=== PATIENT | male | born 1960 | race African-American/Black ===

== ENCOUNTER 2016-10-17 10:17 | Emergency (ER) | payer OTHER ==
[~2016-10-17] VITALS: Ht 167.6 cm; Wt 127.6 kg
[~2016-10-17 10:17] MED LIST: ALBUTEROL17 G1 IH; ASPIRIN81 M1 PO; ATENOLOL25 MG PO; HYTRIN5 MG PO; IMDUR120 MG PO; NITROSTAT0.4 MG PO; PLAVIX75 MG PO; QVAR 40 MCG IN7.3 GM IH; SYNTHROID25 MCG PO; ZESTRIL,PRINIVIL5 MG PO; ZOCOR10 MG PO
[2016-10-17 10:43] LABS: HEMATOCRIT 41.2 % (38.0-50.0); MCH 27.3 PG (29.0-34.0); MCHC 32.3 G/DL (30.0-36.0); MCV 84.6 FL (86-99); MEAN PLAT.VOLUME 9.9 uM^3 (9.0-12.4); PLATELET COUNT 215 K/uL (156-360); RBC DIS.WIDTH-CV 13.7 % (11.8-14.6); RBC DIS.WIDTH-SD 42.5 % (39-53); RED BLOOD COUNT 4.87 M/uL (4.00-5.50); WHITE BLOOD COUNT 7.2 K/uL (4.1-10.2)
[2016-10-17 10:56] LABS: CHLORIDE 107 mEq/L (99-109); D-DIMER ELISA 0.32 mg/L FEU (< 0.57); SODIUM 138 mEq/L (136-147)
[2016-10-17 10:57] LABS: GLUCOSE 93 mg/dL (70-99)
[2016-10-17 10:59] LABS: ANION GAP 8 MEQ/L (2-14)
[2016-10-17 11:01] LABS: GFR ESTIMATE (CALCULATED) > 59 mL/min/
[2016-10-17 11:02] LABS: UREA NITROGEN (BUN) 9 mg/dL (9-23)
[2016-10-17 11:09] LABS: TROP-I INTERPRETATION NEGATIVE; TROPONIN-I < 0.01 ng/mL (0.0-0.30)
[2016-10-17 14:46] VITALS: BP 131/81
== END 2016-10-17 14:49 | disposition short-term general hospital (02) ==
LOC: EME 10:17
PROVIDERS: Emergency Medicine
DX: R07.9 Chest pain, unspecified (principal); J45.909 Unspecified asthma, uncomplicated; E78.5 Hyperlipidemia, unspecified; I10 Essential (primary) hypertension; Z87.891 Personal history of nicotine dependence; Z79.82 Long term (current) use of aspirin
CPT/HCPCS: 71020; 80048; 84484; 85027; 85379; 93005; 99281; 99285